=== PATIENT | male | born 1980 | race Caucasian/White ===

== ENCOUNTER 2021-08-21 09:23 | Outpatient (CLI) | payer OTHER | END 2021-08-21 23:59 | disposition home or self-care (01) | LOC: RAD 09:23 | PROVIDERS: ATTEND Chiropractor | DX: M47.813 Spondylosis without myelopathy or radiculopathy, cervicothoracic region (principal); M41.84 Other forms of scoliosis, thoracic region; M43.8X2 Other specified deforming dorsopathies, cervical region; M12.88 Other specific arthropathies, not elsewhere classified, other specified site; M46.02 Spinal enthesopathy, cervical region; M13.80 Other specified arthritis, unspecified site; M25.512 Pain in left shoulder | CPT/HCPCS: 72040; 72074; 73030 ==